=== PATIENT | female | born 1985 | race Caucasian/White ===

== ENCOUNTER → 2016-12-31 | Outpatient (CLI) | payer SELFPAY ==
[~2016-12-31] VITALS: Ht 165.1 cm; Wt 94.0 kg
[~2016-12-31] MED LIST: ENDOCET 5-3251 EACH PO; IBUPROFEN800 MG PO; METHERGINE0.2 MG PO; MOTRIN800 MG PO; PRENATAL TABLE1 EAC3 PO; TYLENOL EXTRA500 MG PO
[2016-12-31 13:44] VITALS: BP 122/59
== END | disposition home or self-care (01) ==
LOC: IVINF 13:41
DX: Z31.82 Encounter for Rh incompatibility status (principal); Z3A.28 28 weeks gestation of pregnancy; Z67.41 Type O blood, Rh negative
CPT/HCPCS: 96372; J2790

== ENCOUNTER 2017-03-26 07:05 | Inpatient (IN) | payer SELFPAY ==
[2017-03-26] VITALS (19 sets, daily range): BP systolic 112–135; BP diastolic 58–87
[~2017-03-26] VITALS: Ht 162.6 cm; Wt 99.0 kg
[2017-03-26] MEDS ORDERED: PRENATAL TABLE1 EAC3 PO (07:37)
[2017-03-26 09:09] LABS: EOSINOPHIL (%) 0.8 % (0-5); EOSINOPHIL COUNT 0.1 K/uL (0-0.3); HEMATOCRIT 32.8 % (36.0-46.0); IMMATURE GRANULOCYTE (%) 1.8 % (0.0-0.7); IMMATURE GRANULOCYTE COUNT 0.2 K/uL; INSTRUMENT ABS NEUTROPHIL CT 6.6 K/uL; LYMPHOCYTE COUNT 1.3 K/uL (1.0-2.8); MCH 31.6 PG (29.0-34.0); MCHC 34.8 G/DL (30.0-36.0); MCV 90.9 FL (83-99); MONOCYTE (%) 8.4 % (3-12); MONOCYTE COUNT 0.8 K/uL (0-0.8); NEUTROPHIL (%) 74.2 % (45-76); NEUTROPHIL COUNT 6.6 K/uL (1.8-6.4); PLATELET COUNT 143 K/uL (156-360); RBC DIS.WIDTH-CV 13.4 % (11.8-14.6); RBC DIS.WIDTH-SD 44.4 % (39-53); RED BLOOD COUNT 3.61 M/uL (3.80-5.20); WHITE BLOOD COUNT 8.9 K/uL (4.1-10.2)
[2017-03-26] MEDS ORDERED: MOTRIN800 MG PO (16:18)
[2017-03-27 07:14] VITALS: BP 120/74
[2017-03-27 14:59] VITALS: BP 124/73
[2017-03-27 23:11] VITALS: BP 103/59
[2017-03-28 07:41] VITALS: BP 120/75
[2017-03-28 15:11] VITALS: BP 121/73
== END 2017-03-28 17:00 | disposition home or self-care (01) | DRG 775 ==
LOC: LDRP-OP 07:05 → 2WEST 07:06 → LDRP-OP 14:16 → 2WEST 15:34
PROVIDERS: Midwife
DX: O99.214 Obesity complicating childbirth (principal); O36.0931 Maternal care for other rhesus isoimmunization, third trimester, fetus 1; O70.0 First degree perineal laceration during delivery; E66.9 Obesity, unspecified; O12.04 Gestational edema, complicating childbirth; Z3A.40 40 weeks gestation of pregnancy; Z68.37 Body mass index [BMI] 37.0-37.9, adult; Z37.0 Single live birth
CPT/HCPCS: 83030; 85025; 86850; 86900; 86901; C1755; J2790; J3010; J7120